=== PATIENT | female | born 1935 | race Caucasian/White ===

== ENCOUNTER → 2024-06-14 10:13 | Outpatient (REF) | payer MEDICARE, OTHER, SELFPAY | LOC: RCS 10:13 | PROVIDERS: ATTENDING PHYSICIAN Internal Medicine Cardiovascular Disease; FAMILY PHYSICIAN Internal Medicine | DX: Z95.2 Presence of prosthetic heart valve (principal) | CPT/HCPCS: 93306 ==

== ENCOUNTER 2024-07-12 11:29 | Emergency (ER) | payer MEDICARE, OTHER, SELFPAY ==
[2024-07-12 11:30] VITALS: BP 156/83
[2024-07-12 12:45] LABS: Hematocrit 31.4 % (37.0-47.0); Hemoglobin 9.7 g/dL (12.0-16.0); Mean Corp Hgb Conc. 30.9 g/dL (33.0-37.0); Mean Corpuscular Hgb 28.9 pg (27.0-31.0); Mean Corpuscular Volume 93.5 fL (81.0-99.0); Mean Platelet Volume 11.3 fL (7.4-10.4); Platelet Count 183 10^3/uL (130-400); Red Blood Cell Count 3.36 10^6/uL (4.20-5.40); Red Cell Dist. Width 14.4 % (11.5-14.5); White Blood Cell Count 2.7 10^3/uL (4.8-10.8)
--- NOTE | 2024-07-12 12:46 | ED.GENMED ---
History of Present Illness
General
Chief Complaint: Nose Bleed
Time Seen by Provider: 07/12/24 11:43
History of Present Illness
History of Present Illness:
89-year-old female presents to the emergency department for evaluation of frequent nosebleeds over the past several days. Reports episodes lasting 15 to 30 minutes this past spontaneously. She is anticoagulated on Eliquis no current bleeding. She
also reports dyspnea that seems to presents after the nosebleed stops, she does have chronic dyspnea on exertion related to cardiovascular disease, did have an echocardiogram within the past month that was unremarkable.
Past History
Past History
ED Past Medical History: Arrthythmia (afib), CHF and Valvular disease (aortic valve stenosis)
ED Past Surgical History: Appendectomy, Cholecystectomy and Tonsilectomy
Social History
Tobacco: Non-smoker
Alcohol: None
Drug: None
Living: with family
Review of Systems
Review of Systems
Allergies reviewed?: Yes
All Other Systems: ROS reviewed and negative except as documented in HPI and ROS
Phy Exam
Physical Exam
Physical Exam:
GEN: Well appearing, NAD, WDWN
HEENT: Oral mucosa moist, no scleral icterus. Evidence of prior bleeding to the left anterior nasal septum, no active bleeding
Cardiac: Regular rate and rhythm
Lung: No respiratory distress, no tachypnea, lungs clear to auscultation bilaterally
MSK: No gross deformity or injuries
Skin: Good color, no pallor or jaundice, no rashes
Neuro: AO x3, moves all extremities freely
Psych: Calm, cooperative
Course
Orders/Labs/Results
Orders:
Orders
07/12/24 12:28
Complete Blood Count/With Diff Urgent
Manual Differential Urgent
Abnormal Lab Results
07/12/24
12:28
WBC 2.7 L 10^3/uL
(4.8-10.8)
RBC 3.36 L 10^6/uL
(4.20-5.40)
Hgb 9.7 L g/dL
(12.0-16.0)
Hct 31.4 L %
(37.0-47.0)
MCHC 30.9 L g/dL
(33.0-37.0)
MPV 11.3 H fL
(7.4-10.4)
Abs Neuts (Manual) 1.2 L 10^3/uL
(1.4-6.5)
07/12/24 12:28
Vital Signs
Initial and Last Documented VS:
Initial Vital Signs
Temp Pulse Resp BP Pulse Ox
98.0 F 75 16 156/83 97
07/12/24 11:30 07/12/24 11:30 07/12/24 11:30 07/12/24 11:30 07/12/24 11:30
Last Documented Vital Signs
Temp Pulse Resp BP Pulse Ox
98.0 F 75 16 156/83 97
07/12/24 11:30 07/12/24 11:30 07/12/24 11:30 07/12/24 11:30 07/12/24 11:30
Procedures
Nosebleed
Drug treatment: Lidocaine and Epinephrine
Treatment: Silver nitrate cautery
Post treatment bleeding: none- good control
MDM/Problems Addressed
MDM/Problems Addressed:
Site cauterized with no further bleeding noted. Hemoglobin is stable. Do not feel there is any evidence for acute cardiovascular disease causing his shortness of breath
*Critical Care Note
Total Time (30-74mins, 75-104mins- exclusive of procedures): Not Applicable
ED Attending Note
-
Portions of this chart may have been created with voice recognition software.� Occasional wrong word or��sound alike� substitutions may have occurred due to the inherent limitations of voice recognition software.
Discharge Plan
Departure
Patient Disposition: Home (Routine Discharge)
Date of Disposition: 07/12/24
Time of Disposition: 13:19
Patient with high blood pressure during this ER visit?: No
Discharge Problem:
Acute anterior epistaxis
Instructions: Nosebleeds (DC)
Prescriptions:
No Action
tramadol-acetaminophen 37.5-325 mg Tablet
1 tab PO Q8H PRN (Reason: back pain)
Patient Comments:
03/10/2023: last filled 12/03/22, 45 tabs for 7 days from [facility]
levothyroxine 112 mcg Tablet
112 mcg PO DAILY Qty: 0
rosuvastatin [Crestor] 10 mg Tablet
10 mg PO DAILY Qty: 0
Eliquis 5 mg Tablet
5 mg PO BID Qty: 0
potassium chloride 20 mEq Tablet Extended Release
20 meq PO DAILY Qty: 0
furosemide 20 mg Tablet
20 mg PO DAILY Qty: 30 0RF
PreserVision AREDS 2,148 mcg-113 mg-45 mg-17.4mg Tablet
1 tab PO BID
acetaminophen 325 mg Tablet
325 mg PO HS
ferrous sulfate 324 mg (65 mg iron) Tablet,Delayed Release (Dr/Ec)
324 mg PO DAILY
metoprolol succinate 100 mg Tablet Extended Release 24 Hr
100 mg PO BID Qty: 60 0RF
Referrals:
Anish Santiago MD [Family Provider] -
Interventions
Interventions:
*Risk Screen - Suicide Last Done: 07/12/24 13:46
*General Assessment Last Done: 07/12/24 13:46
*Neglect/Abuse Screening Last Done: 07/12/24 13:46
ED- Fall Risk Assessment Last Done: 07/12/24 13:46
*ED COVID-19 Vaccine History Last Done: 07/12/24 13:46
*Nursing Disposition Last Done: 07/12/24 13:47
ED-EENT Assessment Last Done: 07/12/24 13:46
Discharge Date and Time
Discharge Date/Time: 07/12/24 13:47
Print Language: SINHALA
[2024-07-12 14:20] LABS: Absolute Neutrophils -Man Diff 1.2 10^3/uL (1.4-6.5); Atypical Lymphocytes 7 %; Band Neutrophils 0 % (0-3); Eosinophils 2 % (0-6); Lymphocytes 37 % (20-51); Monocytes 6 % (2-9); Segmented Neutrophils 46 % (42-75)
[2024-07-12 14:21] LABS: Normal RBC Morphology Yes; Platelets Checked Yes; Total Cells Counted 100
== END 2024-07-12 13:47 | disposition home or self-care (01) ==
LOC: EMR 11:29
PROVIDERS: Physician Assistant; EMERGENCY PHYSICIAN Emergency Medicine; FAMILY PHYSICIAN Internal Medicine
DX: R04.0 Epistaxis (principal); I48.91 Unspecified atrial fibrillation; I50.9 Heart failure, unspecified; I38 Endocarditis, valve unspecified; Z79.01 Long term (current) use of anticoagulants; Z90.49 Acquired absence of other specified parts of digestive tract; I35.0 Nonrheumatic aortic (valve) stenosis
CPT/HCPCS: 99282; 30901; 85025

== ENCOUNTER 2024-12-17 23:12 | Inpatient (IN) | payer MEDICARE, OTHER, SELFPAY ==
[2024-12-17 17:11] VITALS: BMI 24.4
[2024-12-17 17:15] VITALS: BP 156/70
[2024-12-17 17:46] LABS: Urine Albumin 2+ (Neg - Trace); Urine Bilirubin Negative (Negative); Urine Character Slightly Cloudy (Clear); Urine Color Yellow; Urine Glucose 4+ (Negative); Urine Ketone Negative (Negative); Urine Leukocyte 3+ (Negative); Urine Nitrite Negative (Negative); Urine Occult Blood 3+ (Negative); Urine Specific Gravity 1.015 (<1.030); Urine Urobilinogen 1+ (Neg - 1+)
[2024-12-17 18:00] LABS: % Basophils 0.3 % (0-2); % Immature Granulocytes 0.6 % (0-0.5); % Monocytes 7.5 % (1.7-9.3); % Neutrophils 84.6 % (42.2-75.2); Absolute Immature Granulocytes 0.1 10^3/uL (0-0.05); Absolute Lymphocytes 0.7 10^3/uL (1.2-3.4); Absolute Monocytes 0.7 10^3/uL (0.1-0.6); Absolute Neutrophils 8.3 10^3/uL (1.4-6.5); Hematocrit 36.8 % (37.0-47.0); Hemoglobin 11.8 g/dL (12.0-16.0); Mean Corp Hgb Conc. 32.1 g/dL (33.0-37.0); Mean Corpuscular Hgb 26.8 pg (27.0-31.0); Mean Corpuscular Volume 83.6 fL (81.0-99.0); Mean Platelet Volume 10.9 fL (7.4-10.4); Nucleated Red Blood Cells % 0 %; Platelet Count 171 10^3/uL (130-400); Red Cell Dist. Width 17.5 % (11.5-14.5); White Blood Cell Count 9.8 10^3/uL (4.8-10.8)
[2024-12-17 18:00] LABS: COVID-19 Antigen Negative (Negative)
[2024-12-17 18:03] LABS: Urine Squamous Cell >30 /LPF (Few)
[2024-12-17 18:04] LABS: Urine Bacteria Moderate (Negative); Urine White Cell 26-30 /HPF (0-5)
[2024-12-17 18:08] LABS: INR 1.77; PT 20.8 Sec (11.4-14.6)
[2024-12-17 18:11] LABS: ALT (SGPT) 12 U/L (0-35); AST (SGOT) 21 U/L (14-36); Albumin 4.1 g/dl (3.5-5.0); Alkaline Phosphatase 130 U/L (38-126); Blood Urea Nitrogen 21 mg/dl (7-17); Calcium 8.4 mg/dl (8.4-10.2); Carbon Dioxide 30 mmol/L (22-30); Chloride 106 mmol/L (98-107); Glucose 126 mg/dl (70-99); Potassium 3.5 mmol/L (3.5-5.1); Sodium 143 mmol/L (135-145); Total Protein 7.6 g/dl (6.3-8.2); eGFR 48.63
[2024-12-17 18:22] LABS: Troponin I 0.022 ng/ml
[2024-12-17 19:47] VITALS: BP 178/71
[2024-12-17 20:00] VITALS: BP 175/73
--- NOTE | 2024-12-17 21:10 | ED.GENMED ---
History of Present Illness
General
Chief Complaint: Fever
Time Seen by Provider: 12/17/24 19:58
History of Present Illness
History of Present Illness:
89-year-old female with history of pacemaker, A-fib on Eliquis, status post TAVR, CHF, hypertension presenting to the emergency department for cough and shortness of breath. Patient arrives with daughter, who lives with her, notes that she has been
having cough and congestion for over a week. Today, patient seemed to have worsened, prompting daughter to bring her to the hospital. Patient reports persistent cough, denies chest pain. No report of any fevers at home. Denies history of
pulmonary disease. Daughter also noted that she had some diarrhea today which was her concern. Patient denies any abdominal pain. Does note sick contacts, daughter herself was sick last week with similar symptoms. No additional history obtained
at this time
Past History
Past History
ED Past Medical History: Arrthythmia (afib), CHF and Valvular disease (aortic valve stenosis)
ED Past Surgical History: Appendectomy, Cholecystectomy and Tonsilectomy
Social History
Tobacco: Non-smoker
Alcohol: None
Drug: None
Living: with family
Phy Exam
Physical Exam
Physical Exam:
General: Well-appearing, no clinical signs of dehydration, nontoxic and in no acute distress
HEENT: protecting airway
Neck: appears supple
CV: Normal heart rate, regular rhythm
Resp: No accessory muscle use, rhonchorous breath sounds bilaterally with scant end expiratory
Abd: Soft and non-distended, no tenderness to palpation
Extremities: No deformities, no swelling
Neuro: alert, no focal neurologic deficit
: deferred
Rectal: deferred
Psych: Normal affect
Skin: Intact
Course
Orders/Labs/Results
Orders:
Orders
12/17/24 17:18
Electrocardiogram (*1) Urgent
Reason for Study: Chest Pain
EKG- Treatment ONCE
CXR2 [CR Chest - 2 Views ] Urgent
Comment:
Reason For Exam: cough
12/17/24 17:31
COVID-19 Antigen Urgent
Source: Nasal Swab
Urinalysis Reflex To Culture Urgent
Date Specimen was Collected: 12/17/24
Time Specimen was Collected: 17:19
Urine Microscopic Reflex Cult Urgent
Influenza A+B Rapid Molecular Urgent
LISA Source: Nasal Swab
Specimen Description:
Urine Culture Urgent
LISA Source: U
Specimen Description:
Date Specimen was Collected: 12/17/24
Time Specimen was Collected: 17:19
12/17/24 17:44
Complete Blood Count/With Diff Urgent
Comprehensive Metabolic Panel Urgent
Prothrombin Time Urgent
Troponin I Urgent
12/17/24 21:02
0.9% Sodium Chloride 1000 ml [Nss] 1,000 ml IV BOLUS
Acetaminophen [Tylenol] 650 mg PO NOW STA
Azithromycin 500 mg/250 ml [Zithromax Infusion] 500 mg in 250 ml IV NOW
CefTRIAXone [Rocephin] 1,000 mg IV NOW STA
Abnormal Lab Results
12/17/24 12/17/24
17:31 17:44
Hgb 11.8 L g/dL
(12.0-16.0)
Hct 36.8 L %
(37.0-47.0)
MCH 26.8 L pg
(27.0-31.0)
MCHC 32.1 L g/dL
(33.0-37.0)
RDW 17.5 H %
(11.5-14.5)
MPV 10.9 H fL
(7.4-10.4)
Abs Immat Gran (auto) 0.1 H 10^3/uL
(0-0.05)
Absolute Neuts (auto) 8.3 H 10^3/uL
(1.4-6.5)
Absolute Lymphs (auto) 0.7 L 10^3/uL
(1.2-3.4)
Absolute Monos (auto) 0.7 H 10^3/uL
(0.1-0.6)
Immature Gran % 0.6 H %
(0-0.5)
Neutrophils % 84.6 H %
(42.2-75.2)
Lymphocytes % 7.0 L %
(20.5-51.1)
PT 20.8 H Sec
(11.4-14.6)
BUN 21 H mg/dl
(7-17)
Creatinine 1.1 H mg/dL
(0.6-1.0)
Glucose 126 H mg/dl
(70-99)
Alkaline Phosphatase 130 H U/L
(38-126)
Ur Occult Blood Reflex 3+ A
(Negative)
Leukocyte Esterase Rfl 3+ A
(Negative)
Urine RBC 7-10 A /HPF
(0-2)
Urine WBC (Reflex) 26-30 A /HPF
(0-5)
Urine Bacteria (Reflex) Moderate A
(Negative)
Urine Glucose 4+ A
(Negative)
Urine Albumin (Reflex) 2+ A
(Neg - Trace)
12/17/24 17:44
12/17/24 17:44
Vital Signs
Initial and Last Documented VS:
Initial Vital Signs
Temp Pulse Resp BP Pulse Ox
100.5 F H 73 16 156/70 92
12/17/24 17:15 12/17/24 17:15 12/17/24 17:15 12/17/24 17:15 12/17/24 17:15
Last Documented Vital Signs
Temp Pulse Resp BP Pulse Ox
100.5 F H 70 32 156/70 92
12/17/24 17:15 12/17/24 19:45 12/17/24 19:45 12/17/24 17:15 12/17/24 19:45
MDM/Problems Addressed
MDM/Problems Addressed:
89-year-old female with history of pacemaker, A-fib on Eliquis, status post TAVR, CHF, hypertension presenting for cough and congestion. Vital signs on arrival significant for mild low-grade fever.
On exam, patient is in no acute respiratory distress, however oxygen did drop to the 80s, placed on supplemental O2 for oxygen support. Rhonchorous breath sounds bilaterally with ultimate suspicion for community-acquired pneumonia in the setting of
fever, abnormal lung sounds, hypoxia. Laboratory analysis obtained, no present leukocytosis. Will start patient on IV fluids and administer Tylenol for fever. Pending chest x-ray imaging. Of note, daughter notes that she did notice some blood in
patient's stool earlier today. Hemoglobin stable, as well as BP, without any concern for GI hemorrhage.
21:10 - Chest x-ray is concerning for pneumonia. Will treat as community-acquired. However ultimately feel patient requires admission for continued respiratory monitoring and antibiotic therapy. Patient agreeable to plan.
*EKG
Interpreted by ED Provider?: Yes
EKG Intrepretation Date: 12/17/24
EKG Intrepretation Time: 21:14
Interpretation: normal
Heart Rate: 72
Rate: normal
Rhythm: ventricular paced
[place]: normal axis
Interval: normal interval
QRS Pattern: normal QRS
Ischemia: non-specific ST changes
*Critical Care Note
Total Time (30-74mins, 75-104mins- exclusive of procedures): Not Applicable
ED Attending Note
-
Portions of this chart may have been created with voice recognition software.� Occasional wrong word or��sound alike� substitutions may have occurred due to the inherent limitations of voice recognition software.
Discharge Plan
Departure
Prescriptions:
No Action
tramadol-acetaminophen 37.5-325 mg Tablet
1 tab PO Q8H PRN (Reason: back pain)
Patient Comments:
03/10/2023: last filled 12/03/22, 45 tabs for 7 days from [facility]
levothyroxine 112 mcg Tablet
112 mcg PO DAILY Qty: 0
rosuvastatin [Crestor] 10 mg Tablet
10 mg PO DAILY Qty: 0
Eliquis 5 mg Tablet
5 mg PO BID Qty: 0
potassium chloride 20 mEq Tablet Extended Release
20 meq PO DAILY Qty: 0
furosemide 20 mg Tablet
20 mg PO DAILY Qty: 30 0RF
PreserVision AREDS 2,148 mcg-113 mg-45 mg-17.4mg Tablet
1 tab PO BID
acetaminophen 325 mg Tablet
325 mg PO HS
ferrous sulfate 324 mg (65 mg iron) Tablet,Delayed Release (Dr/Ec)
324 mg PO DAILY
metoprolol succinate 100 mg Tablet Extended Release 24 Hr
100 mg PO BID Qty: 60 0RF
Interventions
Interventions:
*Risk Screen - Suicide Last Done: 12/17/24 17:15
*Neglect/Abuse Screening Last Done: 12/17/24 17:15
ED- Neurological Assessment Last Done: 12/17/24 19:50
ED-Skin Assessment Last Done: 12/17/24 19:50
Discharge Date and Time
Print Language: BURUNDIAN
--- NOTE | 2024-12-17 21:25 | HPS.HSE ---
Addendum entered and electronically signed by Homero Morales DO 12/17/24 22:39:
Patient seen and examined independently. Agree with findings and plan as set forth by APRIL Vera.
Patient is an 89y F with PMH significant for A-Fib, CHF and hypertension who presents to ED complaining of cough and SOB x 1 week. Daughter recently ill with similar symptoms. Cough is productive of yellow sputum. On arrival to ED, patient
noted to be febrile with CXR showing RLL infiltrate.
Ass:
RLL Pneumonia
Acute Hypoxemic Respiratory Failure secondary to the above
Paroxysmal A-Fib
Chronic HFrEF
s/p TAVR
CKD III
Anemia of CKD
Hypothyroidism
Plan:
Admit for further evaluation and treatment.
Continue abx for community acquired pneumonia.
Continue usual outpatient medications including diuretic regimen / Farxiga / etc.
Avoid supplemental IVFs.
Follow I/Os, daily weights, etc.
Continue other usual outpatient medications without changes,.
Follow for clinical improvement.
Original Note:
Family Physician
-
Family Physician:
Chief Complaint
-
cough/congestion
History of Present Illness
89-year-old female with history of pacemaker, A-fib on Eliquis, status post TAVR, CHF, hypertension presenting to the emergency department for cough and shortness of breath for one week. stated cough with clear to yellowish sputum. sob is worse with
exertion. denied fever, chills, chest pain. denied ECHEVARRIA,dizzy or syncope.denied abdominal pain,n,v. she had two episode of diarrhea today.denied dysuria or hematuria.
upon arrival she is requiring 4l of oxygen. chest x ray concerning for pneumonia. patient received ceftriaxone and zithro in ER. admitting for further management.
Medical History
Past Medical History
Past Medical History: Reports Other
Additional Past Medical History:
permanent atrial fib
CHF
bundle branch block
ischemic cardiomyopathy
hypothyroidism
HTN
Polio
uterine cancer
Past Surgical History: Reports Other
Additional Past Surgical History:
hysterectomy
cholecystectomy
tonsillectomy
appendectomy
b/l cataract surgery
aortic valve replacement
Social History
Tobacco: Non-smoker
Alcohol: None
Drug: None
Personal: Single
Living: With Family
Family History
Family History: Not pertinent
Allergies / Home Medications
Allergies reflects when Allergies were last updated in [employer].
Home Medications with original date entered in [employer]
Allergy/Medication List:
Allergies
Allergy/AdvReac Type Severity Reaction Status Date / Time
No Known Allergies Allergy Verified 12/17/24 17:15
Home Medications
apixaban 5 mg tablet (Eliquis) 5 mg PO BID Blood Clot Prevention/Tx ##0 12/28/22
levothyroxine 112 mcg tablet 88 mcg PO DAILY Thyroid ##0 12/28/22
rosuvastatin 10 mg tablet (Crestor) 10 mg PO DAILY High Cholesterol ##0 12/28/22
furosemide 20 mg tablet 20 mg PO DAILY #30 tabs 01/03/23
acetaminophen 325 mg tablet 325 mg PO HS Pain 02/25/23
metoprolol succinate 100 mg tablet,extended release 24 hr 100 mg PO BID #60 tabs 03/14/23
dapagliflozin propanediol 10 mg tablet (Farxiga) 10 mg PO DAILY 12/17/24
sacubitril 24 mg-valsartan 26 mg tablet (Entresto) 1 tab PO BID 12/17/24
Review of Systems
-
Constitutional: Reports No Symptoms
EENT: Reports No Symptoms
Respiratory: Reports Cough and Trouble Breathing
Cardiac: Reports No Symptoms
Abdomen/GI: Reports No Symptoms
: Reports No Symptoms
Musculoskeletal: Reports No Symptoms
Skin: Reports No Symptoms
Neurological: Reports No Symptoms
Endocrine: Reports No Symptoms
Hematologic/Lymphatic: Reports No Symptoms
Psych: Reports No Symptoms
Physical Exam
Vital Signs
Vital Signs
Temp Pulse Resp BP Pulse Ox
100.5 F H 70 32 156/70 92
12/17/24 17:15 12/17/24 19:45 12/17/24 19:45 12/17/24 17:15 12/17/24 19:45
Physical Exam
General: Well Developed, Well Nourished and No Apparent Distress
HEENT: NormoCephalic, Moist mucous membranes and Atraumatic
Respiratory: Wheezes and Rhonchi
Cardiac: S1/S2 and Regular Rhythm; No Murmur or Rub
GI: Soft, Non Tender, Non Distended and Normal Bowel Sounds; No Organomegaly
Rectal: Deferred by Provider
Musculoskeletal: No Clubbing, No Cyanosis and No Edema
Skin: No Rash
Neuro: AO x 3 and Nonfocal/grossly intact
Psych: Calm
Laboratory Results
-
12/17/24 17:44
12/17/24 17:44
Laboratory Results
PT 20.8 Sec (11.4-14.6) H 12/17/24 17:44
INR 1.77 12/17/24 17:44
Total Bilirubin 1.0 mg/dl (0.2-1.3) 12/17/24 17:44
AST 21 U/L (14-36) 12/17/24 17:44
ALT 12 U/L (0-35) 12/17/24 17:44
Alkaline Phosphatase 130 U/L (38-126) H 12/17/24 17:44
Troponin I 0.022 ng/ml 12/17/24 17:44
Data Reviewed
-
Lab Data: Labs Reviewed by me
Impression/Plan
-
#cough/congestion/ acute hypoxic respiratory failure likely secondary to pneumonia
-COVID,flu negative
-doxy, ceftriaxone continued
-Tylenol prn for fever
-Mucinex prn for cough
-patient requiring 4l of oxygen
-continue supplemental oxygen to keep sat >95
-angela as tolerated
-nebs prn for sob/wheezing
#anemia of chronic disease
-hgb stable at 11.8
-no active bleeding
-ctm
#CKD stage 3b
-cr 1.1
-ctm
#chronic HFrEF
-not in acute exacerbation
-Farxiga,Entresto, Lasix ocntinued
-strict I&O, daily weight
#paroxysmal A-fib
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
-Toprol continued
-EKG with paced rhythm
-cont Eliquis
#h/o recent TAVR
#Hyperlipidemia: Continue rosuvastatin
#hypothyroidism
-levothyroxine continued
FULL/Eliquis
[2024-12-17] MEDS: ZITHROMAX INFUSION 250 IV (22:10)
[2024-12-17] MEDS: ROCEPHIN 1000 MG IV (22:10)
[2024-12-17] MEDS: TYLENOL 650 MG PO (22:10)
[2024-12-17 23:00] VITALS: BP 138/71
[2024-12-18] VITALS (8 sets, daily range): BP systolic 114–152; BP diastolic 49–75; PULSE 77; O2SAT 97; BMI 23.5
[2024-12-18] MEDS: TYLENOL 650 MG PO ×2 (00:33→22:05)
[2024-12-18] MEDS: ELIQUIS 5 MG PO ×3 (00:33→20:29)
[2024-12-18] MEDS: TOPROL XL 100 MG PO ×3 (00:33→20:29)
[2024-12-18] MEDS: MUCINEX 600 MG PO ×3 (00:33→20:29)
[2024-12-18] MEDS: ENTRESTO 24 MG/26 MG 1 TAB PO ×3 (00:36→20:29)
[2024-12-18] MEDS: SYNTHROID 88 MCG PO (05:41)
[2024-12-18 08:24] LABS: Hematocrit 36.3 % (37.0-47.0); Hemoglobin 11.8 g/dL (12.0-16.0); Mean Corp Hgb Conc. 32.5 g/dL (33.0-37.0); Mean Corpuscular Hgb 27.2 pg (27.0-31.0); Mean Corpuscular Volume 83.6 fL (81.0-99.0); Mean Platelet Volume 12.2 fL (7.4-10.4); Platelet Count 143 10^3/uL (130-400); Red Blood Cell Count 4.34 10^6/uL (4.20-5.40); Red Cell Dist. Width 17.4 % (11.5-14.5); White Blood Cell Count 15.8 10^3/uL (4.8-10.8)
[2024-12-18 08:44] LABS: Blood Urea Nitrogen 22 mg/dl (7-17); Calcium 8.2 mg/dl (8.4-10.2); Carbon Dioxide 29 mmol/L (22-30); Chloride 106 mmol/L (98-107); Estimated Creatinine Clearance 31 ml/min; Glucose 81 mg/dl (70-99); Potassium 3.4 mmol/L (3.5-5.1); Sodium 145 mmol/L (135-145); eGFR 48.63
[2024-12-18] MEDS: FARXIGA 10 MG PO (08:53)
[2024-12-18] MEDS: CRESTOR 10 MG PO (08:53)
[2024-12-18] MEDS: LASIX 20 MG PO (08:53)
[2024-12-18] MEDS: KCL 40 MEQ PO (09:04)
[2024-12-18 10:08] LABS: Magnesium 2.1 mg/dl (1.6-2.3)
[2024-12-18 10:18] LABS: NT-proBNP 11500 pg/ml
[2024-12-18 10:39] LABS: TSH 0.21 uIU/ml (0.47-4.68)
--- NOTE | 2024-12-18 10:57 | W.PN.HOSP.TC ---
Today's Communication/Plan
-
see PN
Assessment / Plan
Assessment / Plan
89yo F with PMHx of DM, CHF, hypothyroidism, Afib, HLD brought by family with SOB and cough, found fever and concern for RLL pneumonia and possible UTI
A/P:
#Acute hypoxic insufficiency 2/2 RLL pneumonia with unspecified organism
Doxy/Ceftriaxone
COVID-19 and influenza neg
Legionella and S.pneumonia urine Ag neg
wean off O2
Repeat chest XR in 3-4 weeks with PCP
#UTI
Ceftriaxone pending Ucx
#Hypothyroidism
TSH supressed -decrease synthroid and TSH in 3-4 weeks with PCP
#Chronic HFrEF
#Afib, permanent s/p AVJ and BiV ICD
#Non-obstructive CAD
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
#CKD stage 3a
Cont telemetry, cont home meds, follow Cr
ProBNP 25992 - on baseline from prior, will check Echo for gradients, if new findings - possible need in cardio
#hypokalemia
replete and follow
DVT ppx on Eliquis
Full code
I have spent at least 58min reviewing chart, test results, communication with family and providing direct patient care
Anticipated Discharge: > 48 hours
Subjective/Interval History
-
Date of Service: December 18, 2024
Objective Data
-
Labs:
Laboratory Results
12/18/24
06:42
WBC 15.8 H
Hgb 11.8 L
Hct 36.3 L
Plt Count 143
Sodium 145
Potassium 3.4 L
Chloride 106
Carbon Dioxide 29
BUN 22 H
Creatinine 1.1 H
Glucose 81
Calcium 8.2 L
Vital Signs:
Vital Signs
Temp Pulse Resp BP Pulse Ox
97.8 F 71 18 150/66 100
12/18/24 07:40 12/18/24 08:54 12/18/24 07:40 12/18/24 08:54 12/18/24 09:44
I&O
12/17/24 12/18/24 12/19/24
06:59 06:59 06:59
Intake Total 240 / 240
Output Total 150 / 150
Balance -150 / -150 240 / 240
Review of Systems
-
History Source: Patient
All other systems: Reviewed and negative
Physical Exam
-
General: No Apparent Distress
HEENT: Normocephalic and Hearing Impaired
Respiratory: Clear to Auscultation
Cardiac: Regular Rhythm
GI: Soft, Nontender and Nondistended
Genito-urinary: No Costovertebral Tender
Musculoskeletal: No Clubbing, No Cyanosis and No Edema
Neuro: Awake, Alert and Oriented
Psych: Calm and Apparent Dementia
[2024-12-18] MEDS: VIBRAMYCIN 100 MG PO (20:29)
[2024-12-18] MEDS: DUONEB 3 ML INH (20:48)
[2024-12-18] MEDS: ROCEPHIN 1000 MG IV (21:58)
[2024-12-18] MEDS: STERILE WATER FOR INJECTION 10 ML IV (21:58)
[2024-12-19 03:16] VITALS: BP 129/56
[2024-12-19] MEDS: SYNTHROID 75 MCG PO (05:14)
[2024-12-19 06:18] VITALS: BMI 23.7
[2024-12-19 06:49] LABS: % Basophils 0.3 % (0-2); % Eosinophils 0.1 % (0-6); % Immature Granulocytes 0.5 % (0-0.5); % Lymphocytes 8.6 % (20.5-51.1); % Monocytes 5.9 % (1.7-9.3); % Neutrophils 84.6 % (42.2-75.2); Absolute Immature Granulocytes 0.1 10^3/uL (0-0.05); Absolute Lymphocytes 1.3 10^3/uL (1.2-3.4); Absolute Monocytes 0.9 10^3/uL (0.1-0.6); Absolute Neutrophils 12.7 10^3/uL (1.4-6.5); Hematocrit 33.7 % (37.0-47.0); Hemoglobin 10.7 g/dL (12.0-16.0); Mean Corp Hgb Conc. 31.8 g/dL (33.0-37.0); Mean Corpuscular Hgb 26.7 pg (27.0-31.0); Mean Platelet Volume 12.1 fL (7.4-10.4); Nucleated Red Blood Cells % 0 %; Platelet Count 163 10^3/uL (130-400); Red Blood Cell Count 4.01 10^6/uL (4.20-5.40); Red Cell Dist. Width 17.3 % (11.5-14.5)
[2024-12-19 07:07] LABS: ALT (SGPT) 11 U/L (0-35); AST (SGOT) 21 U/L (14-36); Albumin 3.2 g/dl (3.5-5.0); Alkaline Phosphatase 147 U/L (38-126); Blood Urea Nitrogen 23 mg/dl (7-17); Calcium 8.2 mg/dl (8.4-10.2); Carbon Dioxide 28 mmol/L (22-30); Chloride 109 mmol/L (98-107); Estimated Creatinine Clearance 31 ml/min; Glucose 82 mg/dl (70-99); Sodium 141 mmol/L (135-145); Total Bilirubin 0.7 mg/dl (0.2-1.3); Total Protein 6.3 g/dl (6.3-8.2); eGFR 48.63
[2024-12-19 07:30] VITALS: BP 158/78
[2024-12-19] MEDS: ENTRESTO 24 MG/26 MG 1 TAB PO (08:34)
[2024-12-19] MEDS: VIBRAMYCIN 100 MG PO (08:34)
[2024-12-19] MEDS: CRESTOR 10 MG PO (08:34)
[2024-12-19] MEDS: TOPROL XL 100 MG PO (08:34)
[2024-12-19] MEDS: ELIQUIS 5 MG PO (08:34)
[2024-12-19] MEDS: LASIX 20 MG PO (08:34)
[2024-12-19] MEDS: FARXIGA 10 MG PO (08:34)
[2024-12-19] MEDS: MUCINEX 600 MG PO (08:34)
[2024-12-19 09:10] VITALS: BP 138/64; PULSE 70; O2SAT 95
[2024-12-19 11:00] VITALS: BP 166/81
--- NOTE | 2024-12-19 11:16 | CARDSERVLU ---
Echocardiogram with Lumason completed after protocol screening completed. Allergies verified.
Patent IV site: _L AC ____
IV site flushed with 0.9% NaCl pre and post administration.
Diluted bolus method utilized to enhance visualization of ventricular cross.
Total volume given: __6.5__ mL
Patient tolerated all procedures well without complications.
--- NOTE | 2024-12-19 12:13 | W.PN.HOSP.TC ---
Addendum entered and electronically signed by Felice Mendez MD 12/19/24 14:47:
Echocardiogram with EF of 45%.
Patient was eval by speech with no signs of aspiration and can continue with current regular diet
Discussed the above findings with patient and patient daughter at bedside in detail. Agreed for discharge home today.
More than 30 minutes spent in discharge including
Final examination of the patient
Summarizing hospital stay
Instructions for continuing care to all relevant caregivers
Preparation of discharge records, prescriptions, and referral forms
Total time spent (in minutes):52
Original Note:
Today's Communication/Plan
-
await TTE results
abx
bronchodilators
speech eval ordered
Assessment / Plan
Assessment / Plan
89yo F with PMHx of DM, CHF, hypothyroidism, Afib, HLD brought by family with SOB and cough, found fever and concern for RLL pneumonia and possible UTI
A/P:
#Acute hypoxic insufficiency 2/2 RLL pneumonia with unspecified organism
Doxy/Ceftriaxone
COVID-19 and influenza neg
Legionella and S.pneumonia urine Ag neg
wean off O2-on room air
bronchodilators
Speech eval ordered
Repeat chest XR in 4-6 weeks with PCP
#Hypothyroidism
TSH supressed -decrease synthroid and TSH in 3-4 weeks with PCP
#Chronic HFrEF
#Afib, permanent s/p AVJ and BiV ICD
#Non-obstructive CAD
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
#CKD stage 3a
Cont telemetry, cont home meds, follow Cr
ProBNP 42268 - on baseline from prior, will check Echo for gradients, if new findings - possible need in cardio
#hypokalemia
replete and follow
DVT ppx on Eliquis
Full code
PT/OT-home health vs. no need.
Anticipated Discharge: Today
Subjective/Interval History
-
Date of Service: December 19, 2024
states of dry cough-worse w/ drinking water at times
on room air
feeling better
Objective Data
-
Labs:
Laboratory Results
12/19/24
05:59
WBC 15.0 H
Hgb 10.7 L
Hct 33.7 L
Plt Count 163
Sodium 141
Potassium 4.0
Chloride 109 H
Carbon Dioxide 28
BUN 23 H
Creatinine 1.1 H
Glucose 82
Calcium 8.2 L
Total Bilirubin 0.7
AST 21
ALT 11
Alkaline Phosphatase 147 H
Vital Signs:
Vital Signs
Temp Pulse Resp BP Pulse Ox
99.2 F 80 18 158/78 95
12/19/24 07:30 12/19/24 08:34 12/19/24 07:30 12/19/24 08:34 12/19/24 07:30
I&O
12/18/24 12/19/24 12/20/24
06:59 06:59 06:59
Intake Total 720 / 720
Output Total 150 / 150
Balance -150 / -150 720 / 720
Physical Exam
-
General: No Apparent Distress
HEENT: Normocephalic and Hearing Impaired
Respiratory: Rales
Cardiac: Regular Rhythm and S1/S2
GI: Soft, Nontender and Nondistended
Genito-urinary: No Costovertebral Tender
Musculoskeletal: No Clubbing, No Cyanosis and No Edema
Neuro: Awake, Alert, Oriented and No Motor Deficits
Psych: Calm and Apparent Dementia
--- NOTE | 2024-12-19 12:22 | CM ---
Met with patient to obtain information for assessment. Patient stated that her daughter lives with her in a two story Farm[place]. There are no steps to enter. Patient has a first floor set up. Patient uses a walker. She described herself as
independent with all ADLs, personal care, dressing and bathing. Her daughter assists with the cleaning, cooking, laundry and insulation foreman. She has a walker but reported no other DME. Patient's daughter provides transportation to her appointments
and take her shopping. Patient is not current with VN. She has not been to a SNF.
Patient has a prescription plan and uses, [facility] for all of her medication,
Patient expressed that she is anxious to return home when cleared and does not feel that she will have any needs for CM.
Plan: Case management will continue to follow and assist with discharge planning. Home when cleared.
--- NOTE | 2024-12-19 14:28 | PTOTSP ---
Speech Therapy Evaluation:
Pt presents with functional oral stage. Consistent coughing noted outside of PO intake, that did not appear to increase during PO trials. Unable to rule out aspiration/pharyngeal dysphagia given current RLL PNA. Pt reported history of 'stretching'
due to pills getting stuck, however unable to locate in chart. Pt afebrile, on room air, and has no hx of EFFICIENCY MANAGER services.
Recommend:
1. Continue regular solids and thin liquids
2. Medications as tolerated
3. General aspiration precautions
4. EFFICIENCY MANAGER to follow to monitor tolerance of diet and determine if pt would benefit from instrumental assessment
--- NOTE | 2024-12-19 14:46 | W.DCSUMMARY ---
Discharge Summary
Discharge Data
Date of Admission: 12/17/24
Date of Discharge: 12/19/24
-
Pending Results: No
Hospital Course
89-year female medical history of CHF, diabetes, hypothyroidism, atrial fibrillation, hyperlipidemia is presenting from home with concern for cough and fever. Patient was also found to acute hypoxic respiratory insufficiency. Patient was started
on doxycycline ceftriaxone. COVID and influenza were checked and found to be negative. Legionella and strep pneumo antigen were checked and found to be negative. Patient was weaned off to room air. Patient was also advised speech therapy and
recommend no change in diet consistency. Recommend repeat chest x-ray in 4 to 6 weeks as outpatient to assess for resolution. Also with TSH was suppressed and Synthroid dose was adjusted on admission. Also underwent echocardiogram without any
significant change compared to 06/14/24: no significant change. Prior LVEF was 40-45%. Mildy reduced left ventricular systolic function. LV ejection fraction is 45%. Global hypokinesis. Moderate mitral regurgitation. 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
Peak/mean gradients across the aortic valve are 20/11 mmHg. Mild aortic regurgitation. Patient was eval by PT and OT and be discharged home.
Discharge Plan
-
Patient Disposition: Home with Home Care
Discharge Diagnosis/Procedures: Acute hypoxic insufficiency 2/2 pneumonia
Condition: Fair
Diet: 2 Gram Sodium and Restrict fluids to 48 oz
Activity: As tolerated
Driving Restrictions: As prior to admission
Blood Work: Thyroid function testing in 4-5 weeks via primary doctor
Others Tests: Repeat Chest xray in 4-5 weeks to assess for resolution of pneumonia
Other Services: VN
Referrals:
Cris cMintosh MD [Family Provider] - in less than 1 week
Prescriptions:
New
levothyroxine 75 mcg Tablet
75 mcg PO DAILY @ 0600 Qty: 30 0RF
guaifenesin 600 mg Tablet Extended Release 12hr
600 mg PO Q12 Qty: 20 0RF
doxycycline hyclate 100 mg Capsule
100 mg PO BID 4 Days Qty: 8 0RF
cefdinir 300 mg capsule
300 mg PO BID Qty: 6 0RF
albuterol sulfate 90 mcg/actuation HFA aerosol inhaler
2 puff inhalation Q6H PRN (Reason: shortness of breath or wheezing) Qty: 6.7 0RF
Continued
rosuvastatin [Crestor] 10 mg Tablet
10 mg PO DAILY Qty: 0
Eliquis 5 mg Tablet
5 mg PO BID Qty: 0
furosemide 20 mg Tablet
20 mg PO DAILY Qty: 30 0RF
acetaminophen 325 mg Tablet
325 mg PO HS
metoprolol succinate 100 mg Tablet Extended Release 24 Hr
100 mg PO BID Qty: 60 0RF
Rx Instructions:
100mg in am, 50mg at hs
dapagliflozin propanediol [Farxiga] 10 mg Tablet
10 mg PO DAILY
Entresto 24-26 mg Tablet
1 tab PO BID
Discontinued
levothyroxine 112 mcg Tablet
88 mcg PO DAILY Qty: 0
Discharge Orders:
Discharge Patient (As Directed); Ordered 12/19/24
Ordered By: Felice Mendez
Discharge Date and Time
Print Language: MALDIVIAN
[2024-12-19 15:35] VITALS: BP 139/75
== END 2024-12-19 17:55 | disposition home or self-care (01) | DRG 194 ==
LOC: 4 EAST ACU 23:12
PROVIDERS: Registered Nurse; ADMITTING PHYSICIAN Hospitalist; ATTENDING PHYSICIAN Hospitalist; EMERGENCY PHYSICIAN Student in an Organized Health Care Education/Training Program; FAMILY PHYSICIAN Hospitalist
DX: J18.9 Pneumonia, unspecified organism (principal); I13.0 Hypertensive heart and chronic kidney disease with heart failure and stage 1 through stage 4 chronic kidney disease, or unspecified chronic kidney disease; I50.22 Chronic systolic (congestive) heart failure; I48.21 Permanent atrial fibrillation; D63.1 Anemia in chronic kidney disease; N18.32 Chronic kidney disease, stage 3b; E03.9 Hypothyroidism, unspecified; E87.6 Hypokalemia; R06.89 Other abnormalities of breathing; E11.22 Type 2 diabetes mellitus with diabetic chronic kidney disease; I25.5 Ischemic cardiomyopathy; R09.02 Hypoxemia; E78.5 Hyperlipidemia, unspecified; Z11.52 Encounter for screening for COVID-19; Z79.01 Long term (current) use of anticoagulants; Z95.3 Presence of xenogenic heart valve; Z95.0 Presence of cardiac pacemaker
CPT/HCPCS: 71046; 80048; 80053; 81003; 81015; 83735; 83880; 84443; 84484; 85025; 85027; 85610; 87086; 87449; 87502; 87811; 87899; 92610; 93005; 93306; 94640; 96365; 96375; 97116; 97162; 97166; 97530; 99285; Q9950

== ENCOUNTER → 2025-06-16 14:35 | Outpatient (REF) | payer MEDICARE, OTHER, SELFPAY | LOC: HWRCS 14:35 | PROVIDERS: ATTENDING PHYSICIAN Internal Medicine Cardiovascular Disease; FAMILY PHYSICIAN Hospitalist | DX: I50.20 Unspecified systolic (congestive) heart failure (principal); Z87.01 Personal history of pneumonia (recurrent) | CPT/HCPCS: 93306 ==